=== PATIENT | female | born 1985 | race Caucasian/White ===

== ENCOUNTER 2016-07-21 08:25 | Emergency (ER) | payer BC ==
[~2016-07-21] VITALS: Ht 152.4 cm; Wt 60.0 kg
[~2016-07-21 08:25] MED LIST: CYMB60CA PO; PROC1TAB8 PO; SUCR1TAB PO
[2016-07-21 08:26] VITALS: BP 143/74; PULSE 72; RESP 16; TEMP 98.1; O2SAT 98
[2016-07-21 08:40] VITALS: BP 116/70; PULSE 71; RESP 18; O2SAT 100
[2016-07-21 08:48] VITALS: BP 116/70; PULSE 80; RESP 18; O2SAT 100
--- NOTE | 2016-07-21 09:06 | PD ---
HPI Chief Complaint: Flank/Kidney Pain Time Seen by Provider: 08:56 Travel History International Travel<30 days: No Contact w/Intl Traveler<30days: No Traveled to known affect area: No History of Present Illness HPI The patient was seen and examined in the presence of the nurse. She complains of left flank pain. Duration one day. Severity is moderate. Denies any specific injury but does have some back pain issues. No alleviating factors. No dysuria PFSH Past Medical History Depression: Yes Cancer: No Cardiovascular Problems: No Diabetes: No (GESTATIONAL DIABETES WITH BOTH PREGNANCIES) Endocrine: No Gastrointestinal Disorders: Yes (ACID REFLUX & ERROSION FROM ) Genitourinary: No Hepatitis: No Hiatal Hernia: No Hypertension: Yes (PRE ECLAMPTIC 2014 (BOTH PREGNANCIES)) Immune Disorder: No Medical other: No Musculoskeletal: No Neurologic: No Psychiatric: Yes (ANXIETY & DEPRESSION) Reproductive: Yes (pre-ecclampsia with both pregnancies) Respiratory: No Thyroid Disease: No Influenza Vaccination: No ?: Not : 2 Para: 2 Past Surgical History Abdominal Surgery: Yes (HX OF GASTRIC BYPASS - 02/06/2015) AICD: No Body Medical Devices: IUD Cardiac Surgery: No Section: Yes (HX OF 2 C-SECTIONS) Ear Surgery: No Endocrine Surgery: No Eye Surgery: No Genitourinary Surgery: No Gynecologic Surgery: Yes (C SECTION X 2 (2014 & 2013)) Joint Replacement: No Neurologic Surgery: No Oral Surgery: Yes (WISDOM TEETH REMOVED 1999) Pacemaker: No Thoracic Surgery: No Other Surgery: Yes Social History Alcohol Use: No Tobacco Use: No Substance Use: No Allergies-Medications (Allergen,Severity, Reaction): Coded Allergies: No Known Allergies (Unverified , 04/05/15) Reported Meds & Prescriptions Reported Meds & Active Scripts Active Reported Compazine 10 Mg Tab (Prochlorperazine Maleate) 10 Mg Tab 10 Mg PO QID Carafate 1 Gm Tab (Sucralfate) 1 Gm Tab 1 Gm PO TIDACHS Take with water on an empty stomach. To reduce the potential of adversely affecting the absorption of other drugs, take other drugs 2 hours prior to Sucralfate. Cymbalta (Duloxetine Hcl) 60 Mg Cap 60 Mg PO DAILY Review of Systems General / Constitutional: No: Fever Eyes: No: Visual changes HENT: No: Headaches Cardiovascular: No: Chest Pain or Discomfort Respiratory: No: Shortness of Breath Gastrointestinal: No: Abdominal Pain Genitourinary: No: Dysuria Musculoskeletal: Positive: Pain Skin: No Rash Neurologic: No: Weakness Psychiatric: No: Depression Endocrine: No: Polydipsia Hematologic/Lymphatic: No: Easy Bruising Physical Exam Narrative GENERAL: Well-nourished, well-developed patient in no apparent distress. SKIN: Warm and dry. HEAD: Atraumatic. Normocephalic. EYES: Pupils equal and round. No scleral icterus. No injection or drainage. ENT: No nasal bleeding or discharge. Mucous membranes pink and moist. NECK: Trachea midline. No JVD. CARDIOVASCULAR: Regular rate and rhythm. No murmur appreciated. RESPIRATORY: No accessory muscle use. Clear to auscultation. Breath sounds equal bilaterally. GASTROINTESTINAL: Abdomen soft, non-tender, nondistended. Hepatic and splenic margins not palpable. MUSCULOSKELETAL: No obvious deformities. No clubbing. No cyanosis. No edema. Has reproducible tenderness in the left lumbar and CVA areas. No midline tenderness. NEUROLOGICAL: Awake and alert. No obvious cranial nerve deficits. Motor grossly within normal limits. Normal speech. PSYCHIATRIC: Appropriate mood and affect; insight and judgment normal. Data Data Last Documented VS Vital Signs Date Time Temp Pulse Resp B/P Pulse Ox O2 Delivery O2 Flow Rate FiO2 07/21/16 08:48 80 18 116/70 100 Room Air 07/21/16 08:26 98.1 Orders Urinalysis - C+S If Indicated (07/21/16 09:02) Ed Urine Pregnancytest Poc (07/21/16 09:02) Urine Culture (07/21/16 09:11) Oxycodone-Acetamin 5-325 Mg (Percocet (07/21/16 10:30) Labs Laboratory Tests Test 07/21/16 09:11 Urine Color BROWN Urine Turbidity HAZY Urine pH 5.5 Urine Specific [place] 1.017 Urine Protein 30 mg/dL Urine Glucose (UA) NEG mg/dL Urine Ketones NEG mg/dL Urine Occult Blood LARGE Urine Nitrite POS Urine Bilirubin NEG Urine Urobilinogen 4.0 MG/DL Urine Leukocyte Esterase NEG Urine RBC /hpf Urine WBC 2 /hpf Urine Bacteria OCC /hpf Microscopic Urinalysis Comment CULTURE INDICATED MDM Medical Decision Making Medical Screen Exam Complete: Yes Emergency Medical Condition: Yes Medical Record Reviewed: Yes Differential Diagnosis Pyelonephritis, cystitis, lumbar strain, kidney stone Narrative Course I have reviewed the patient's electronic medical record. Urine is negative Urinalysis shows hematuria without infection but will be cultured We discussed this. She thinks it's likely vaginal contaminant and she is having menstrual bleeding today On a clinical basis I doubt kidney stone. I had ordered a CT to look for this but after discussing with the patient she only wants it if absolutely necessary and I don't think so. I wrote her some medication for pain and gave HER-2 pain pills here Recommend primary care follow-up Most likely seems musculoskeletal low back pain Diagnosis Primary Impression: Low back pain Qualified Code: M54.5 - Acute left-sided low back pain without sciatica Additional Impression: Hematuria Additional Instructions: The patient was advised to follow up with their physician and return if they worsen. The patient was warned about potential sedation for the medications they will receive on prescription. Med/Other Pt SpecificInfo: Prescription(s) given Scripts Acetaminophen-Codeine (Tylenol-Codeine #3)300-30 mg Tab1 Tab PO Q6HR PRN (PAIN) #20 TAB Ref 0 Prov:Shawn Serna MD 07/21/16 Disposition: 01 DISCHARGE HOME Condition: Stable Shawn Serna MD Jul 21, 2016 09:06
[2016-07-21 09:37] LABS: BACTERIA, URINE OCC /hpf; BLOOD, URINE LARGE (NEG); COMMENT (UR) CULTURE INDICATED; CULTURE IF INDICATED CULTURE INDICATED; GLUCOSE,URINE NEG (NEG); KETONE, URINE NEG (NEG); PH, URINE 5.5 (5.0-8.5)
[2016-07-21 09:38] LABS: NITRITE,URINE POS (NEG); URINE COLOR BROWN (YELLW/STRAW)
[2016-07-21] MEDS ORDERED: oxyCODONE/ACETAMINOPHEN 5 MG/325 MG TAB PO ONE (10:30)
[2016-07-21] MEDS ORDERED: TYLETAB34 PO (10:42)
== END 2016-07-21 12:01 | disposition home or self-care (01) ==
LOC: NEPE 08:25
DX: M54.5 Low back pain (principal); R31.9 Hematuria, unspecified
CPT/HCPCS: 81001; 84703; 87086; 99284